=== PATIENT | male | born 1995 | race Caucasian/White ===

== ENCOUNTER 2025-04-08 20:12 | Emergency (ER) | payer BC, SELFPAY ==
[2025-04-08 20:28] VITALS: BP 150/99
[2025-04-08 20:54] LABS: Hematocrit 38.5 % (39.0-52.0); Hemoglobin 13.0 g/dL (13.0-18.0); Mean Corp Hgb Conc. 33.8 g/dL (33.0-37.0); Mean Corpuscular Volume 85.2 fL (80.0-94.0); Nucleated Red Blood Cells % 0 % (-); Platelet Count 369 10^3/uL (130-400); Red Cell Dist. Width 12.7 % (11.5-14.5)
[2025-04-08 20:55] LABS: Urine Character Clear (Clear)
[2025-04-08 21:13] LABS: ALT (SGPT) 34 U/L (0-50); AST (SGOT) 25 U/L (17-59); Albumin 4.7 g/dl (3.5-5.0); Alkaline Phosphatase 83 U/L (38-126); Blood Urea Nitrogen 12 mg/dl (9-20); Calcium 9.3 mg/dl (8.4-10.2); Carbon Dioxide 24 mmol/L (22-30); Chloride 99 mmol/L (98-107); Glucose 142 mg/dl (70-99); Potassium 3.9 mmol/L (3.5-5.1); Sodium 131 mmol/L (135-145); Total Protein 7.9 g/dl (6.3-8.2); eGFR > 60.00
[2025-04-08 21:15] LABS: Urine Red Blood Cell >100 /HPF (0-2)
[2025-04-08 21:16] LABS: Urine White Cell 0-2 /HPF (0-5)
[2025-04-08 22:28] VITALS: BMI 35.9
[2025-04-08 22:35] VITALS: BP 123/87
--- NOTE | 2025-04-08 22:48 | ED.GENMED ---
History of Present Illness
General
Chief Complaint: Flank Pain
Source: patient and family
Time Seen by Provider: 04/08/25 22:21
History of Present Illness
History of Present Illness:
Note:
CHIEF COMPLAINT(S)
Right flank pain, suggestive of kidney stone.
HISTORY OF PRESENT ILLNESS
The patient is a 29-year-old male presenting with right flank pain experienced while at rest following his workday, beginning at approximately 5:30 PM. The patient describes the pain as severe and sudden in onset, reminiscent of previous kidney
stone episodes. 'I felt kind of like something dropped in my right side,' he reported, recognizing the pain pattern from prior episodes. He was unable to drive due to the severity of the pain and called his mother for support. Although he
experienced sweating, no episodes of vomiting occurred. After arriving at the emergency department and providing a urine sample, the pain subsided, leading to the speculation that the stone may have moved into the bladder. The patient also
self-administered 500 mg of acetaminophen at about 8:00 PM.
During previous episodes, the patient experienced similar significant discomfort, which was only relieved by prescribed pain medication. He requests a refill of the medication in preparation for potential future occurrences. The patient acknowledges
a family history of kidney stones and links the current episode to past events.
ADDITIONAL HISTORY OBTAINED FROM SOURCES OTHER THAN THE PATIENT
No external sources of information regarding the present illness were discussed.
CHRONIC MEDICAL CONDITIONS SIGNIFICANTLY AFFECTING CARE
The patient has a history of kidney stones, specifically calcium oxalate stones.
SOCIAL DETERMINANTS AFFECTING HEALTH
The patient is currently grieving the recent of his father and notes potential impacts from missed medical appointments due to the emotional stress.
FAMILY HISTORY
The patients father had a history of kidney stones and recently from complications following lung cancer treatment.
PHYSICAL EXAM
General: Alert, no acute distress.
Skin: Warm, dry.
Head: Normocephalic, atraumatic.
Neck: Supple, trachea midline.
Eye Ears, nose, mouth and throat: Oral mucosa moist.
Cardiovascular: Normal peripheral perfusion, No edema.
Respiratory: Respirations are non-labored.
Gastrointestinal: Abdomen nondistended.
Back: Normal range of motion, Normal alignment.
Musculoskeletal: Normal ROM, normal strength.
Neurological: Alert and oriented to person, place, time, and situation, No focal neurological deficit observed.
Psychiatric: Cooperative, appropriate mood & affect.
PROBLEM LIST
Acute:
- Suspected kidney stone with associated right flank pain.
Chronic:
- History of calcium oxalate kidney stones.
PLAN
1. Prescribe pain medication for severe pain episodes, cautioning the patient to use it sparingly.
2. Consider prescribing tamsulosin (FlowMax) for a brief duration if symptoms persist or recur, to facilitate stone passage.
3. Advise the patient to follow up with a urologist, especially if symptoms persist or recur, for further evaluation and management strategies to prevent future kidney stones.
4. Encourage hydration and consider dietary adjustments if not already in place based on urology advice.
5. Provide an information sheet on kidney stone management, including symptoms that warrant immediate medical attention.
DIFFERENTIAL DIAGNOSIS
The Differential Diagnosis includes, in no particular order and is not limited to:
- Nephrolithiasis (Kidney stones)
- Pyelonephritis
- Hydronephrosis
- Renal cyst
- Musculoskeletal back pain
- Appendicitis
- Cholecystitis
- Pancreatitis
- Abdominal aortic aneurysm
- Gastrointestinal colic
Disposition:
SUMMARY OF ENCOUNTER
The patient, a 29-year-old male with a history of kidney stones, presented with right flank pain consistent with previous nephrolithiasis episodes. Urinalysis showed red blood cells, reinforcing a suspicion of kidney stones. His pain resolved on its
own and has been absent for over an hour. No imaging was deemed necessary due to resolution of symptoms. The patient was given a strainer to catch any passed stones and pain medication to use if symptoms return.
PLAN
1. Prescribe pain medication for potential reoccurrence of pain.
2. Provide a urine strainer for the patient to capture passed stones.
3. Recommend follow-up with urology for further evaluation and management.
INDEPENDENT REVIEW OF LABS AND INTERPRETATION OF TESTS
- My independent review of urinalysis is: presence of red blood cells, suggesting nephrolithiasis.
- My independent review of CBC indicates normal white blood cell count and hemoglobin.
- My independent review of BMP suggests normal renal function, supported by normal creatinine and chemistries.
PATIENT EDUCATION AND COUNSELING
The patient was advised on kidney stone management, including the use of a urine strainer and signs that warrant immediate medical attention.
FOLLOW-UP INSTRUCTIONS
The patient was instructed to follow up with a urologist for potential preventative strategies and further management.
MEDICATION RECONCILIATION
Prescribed pain medication to use sparingly if flank pain returns.
MEDICAL DECISION MAKING
- Number and Complexity of Problems Addressed: Chronic conditions affecting care include a history of calcium oxalate kidney stones. Differential diagnosis considered includes nephrolithiasis, pyelonephritis, hydronephrosis, renal cyst,
musculoskeletal back pain, appendicitis, cholecystitis, pancreatitis, abdominal aortic aneurysm, and gastrointestinal colic.
- Data:
- Category 1: Reviewed urinalysis, CBC, and BMP.
- Category 3: No additional consultations required as symptoms resolved, negating the need for immediate imaging or specialist input.
- Risk: Consideration of Admission/Observation: Escalation of care was considered but ultimately deemed unnecessary as the patients symptoms resolved, lab results were normal, vitals were stable, and the patient was reliable for outpatient
management and follow-up.
DIAGNOSIS
- Nephrolithiasis (Kidney stones), ICD-10: N20.0
Phy Exam
Physical Exam
Physical Exam:
.
Course
Orders/Labs/Results
Orders:
Orders
04/08/25 20:45
Complete Blood Count/With Diff Urgent
Comprehensive Metabolic Panel Urgent
Urinalysis Reflex To Culture Urgent
Date Specimen was Collected: 04/08/25
Time Specimen was Collected: 20:32
Urine Microscopic Reflex Cult Urgent
Abnormal Lab Results
04/08/25
20:45
RBC 4.52 L 10^6/uL
(4.70-6.10)
Hct 38.5 L %
(39.0-52.0)
Sodium 131 L mmol/L
(135-145)
Glucose 142 H mg/dl
(70-99)
Urine Ketones 1+ A
(Negative)
Ur Occult Blood Reflex 4+ A
(Negative)
Urine RBC >100 A /HPF
(0-2)
Urine Bacteria (Reflex) Few A
(Negative)
Urine Albumin (Reflex) 1+ A
(Neg - Trace)
04/08/25 20:45
04/08/25 20:45
Vital Signs
Initial and Last Documented VS:
Initial Vital Signs
Pulse Resp BP Pulse Ox
72 28 150/99 100
04/08/25 20:28 04/08/25 20:28 04/08/25 20:28 04/08/25 20:28
Last Documented Vital Signs
Temp Pulse Resp BP Pulse Ox
98.6 F 72 16 119/73 99
04/08/25 23:15 04/08/25 23:15 04/08/25 22:35 04/08/25 23:15 04/08/25 23:15
*Pulse Oximetry
SaO2: 98
Oxygen Mode of Delivery: Room air
Patient hypoxic: no
*Critical Care Note
Total Time (30-74mins, 75-104mins- exclusive of procedures): Not Applicable
ED Attending Note
-
Portions of this chart may have been created with voice recognition software.� Occasional wrong word or��sound alike� substitutions may have occurred due to the inherent limitations of voice recognition software.
Discharge Plan
Departure
Patient Disposition: Home (Routine Discharge)
Date of Disposition: 04/08/25
Time of Disposition: 22:48
Patient with high blood pressure during this ER visit?: No
Discharge Problem:
Renal colic
Instructions: Kidney Stones (DC), How to Strain Your Urine, Narcotic Pain Medication
Prescriptions:
New
hydrocodone-acetaminophen 5-325 mg tablet
2 tab PO Q6H PRN (Reason: Pain) Qty: 14 0RF
tamsulosin 0.4 mg capsule
0.4 mg PO HS Qty: 20 0RF
Referrals:
KIARA AUGUSTINE [Other]
Activity Restrictions/Additional Instructions:
Please see your doctor or urology in the next 1 to 2 weeks for follow-up and reevaluation. Return immediate for intractable pain, tractable vomiting, fevers or any other concerns.
Interventions
Interventions:
*Risk Screen - Suicide Last Done: 04/08/25 20:28
*General Assessment Last Done: 04/08/25 20:28
*Neglect/Abuse Screening Last Done: 04/08/25 20:28
*ED- Fall Risk Assessment Last Done: 04/08/25 20:28
*ED COVID-19 Vaccine History Last Done: 04/08/25 20:28
*ED Influenza Vaccine History Last Done: 04/08/25 20:28
*Nursing Disposition Last Done: 04/08/25 23:15
IQ-Hxshko-Cwojphhfeu Assessment Last Done: 04/08/25 22:28
ED-Male Genitourinary Assessment Last Done: 04/08/25 22:28
Discharge Date and Time
Discharge Date/Time: 04/08/25 23:15
Print Language: EMIRATI
[2025-04-08 23:15] VITALS: BP 119/73
== END 2025-04-08 23:15 | disposition home or self-care (01) ==
LOC: EMR 20:12
PROVIDERS: Emergency Medicine; EMERGENCY PHYSICIAN Emergency Medicine
DX: N23 Unspecified renal colic (principal); Z87.442 Personal history of urinary calculi; Z63.4 Disappearance and death of family member; Z91.198 Patient's noncompliance with other medical treatment and regimen for other reason; Z84.19 Family history of other disorders of kidney and ureter
CPT/HCPCS: 99282; 80053; 81003; 81015; 85025

== ENCOUNTER 2025-04-10 05:19 | Emergency (ER) | payer BC, SELFPAY ==
[2025-04-10 05:20] VITALS: BP 152/106
[2025-04-10] MEDS: TORADOL 15 MG IV (05:41)
[2025-04-10] MEDS: NSS 1000 IV (05:41)
[2025-04-10] MEDS: ZOFRAN 4 MG IV (05:41)
[2025-04-10 05:52] LABS: Hematocrit 37.5 % (39.0-52.0); Hemoglobin 12.6 g/dL (13.0-18.0); Mean Corp Hgb Conc. 33.6 g/dL (33.0-37.0); Mean Corpuscular Volume 86.4 fL (80.0-94.0); Nucleated Red Blood Cells % 0 % (-); Platelet Count 346 10^3/uL (130-400); Red Cell Dist. Width 12.5 % (11.5-14.5)
[2025-04-10 05:55] VITALS: BMI 34.4
[2025-04-10 06:06] LABS: ALT (SGPT) 31 U/L (0-50); AST (SGOT) 22 U/L (17-59); Albumin 4.4 g/dl (3.5-5.0); Alkaline Phosphatase 82 U/L (38-126); Blood Urea Nitrogen 14 mg/dl (9-20); Calcium 9.2 mg/dl (8.4-10.2); Carbon Dioxide 24 mmol/L (22-30); Chloride 101 mmol/L (98-107); Estimated Creatinine Clearance > 125 ml/min; Glucose 124 mg/dl (70-99); Lipase 113 U/L (23-300); Potassium 3.7 mmol/L (3.5-5.1); Sodium 136 mmol/L (135-145); Total Protein 7.1 g/dl (6.3-8.2); eGFR > 60.00
[2025-04-10 06:24] LABS: Urine Character Slightly Cloudy (Clear)
[2025-04-10 06:30] VITALS: BP 138/95
--- NOTE | 2025-04-10 06:50 | ED.GENMED ---
History of Present Illness
General
Chief Complaint: Flank Pain
Source: patient and records
Exam Limitations: none
Time Seen by Provider: 04/10/25 06:01
Nursing documentation reviewed up to this point in time: agreed with
History of Present Illness
History of Present Illness:
29-year-old male with history of kidney stones returns to the ER for evaluation of flank pain. Patient reports that he had symptom onset yesterday�describes intense right flank pain. He was seen in the emergency room for symptoms and had lab work
and urinalysis suggestive of a kidney stone. He did not have imaging at that time because his symptoms resolved while he was in the emergency room and he believes he may have passed the stone. He says that he felt fine when he went home but woke
up in the middle of the night around 3 AM with intense right flank pain once again. He was given pain medication in the ER yesterday which he took and his symptoms have improved a bit but have not yet resolved and so he came back to the ER. He did
have nausea and vomiting this morning associated with the intense pain. He denies any dysuria, hematuria. Denies fever or chills. Denies any radicular symptoms or weakness/numbness/incontinence or any traumatic mechanism. He does have history of
kidney stones multiple times in the past that she says the last one was a few years ago, 5 mm on the left and he was able to pass it.
Review of Systems
Review of Systems
All Other Systems: ROS reviewed and negative except as documented in HPI and ROS
Constitutional: Denies fever or chills
Respiratory: Denies trouble breathing
Cardiac: Denies chest pain
ABD/GI: Reports nausea and vomiting; Denies abdominal pain
: Reports flank pain; Denies dysuria or frequency
Musculoskeletal: Denies neck pain
Neurological: Denies headache
Phy Exam
Physical Exam
Physical Exam:
General: Awake, alert, oriented x3; nontoxic appearing
Head: Normocephalic, atraumatic
Eyes: Conjunctiva normal, sclera anicteric
Throat: Airway intact, handling secretions
Neck: Trachea midline, supple without meningismus
Lungs: Clear to auscultation bilaterally, no wheezing, rales, rhonchi
Heart: Regular rate and rhythm, no murmurs, gallops, or rubs
Abd: Soft, non distended, nontender
Back: No CVA tenderness
Neuro: Grossly intact
Skin: no rash in area of concern
Extremities: No edema in extremities, warm and well-perfused
Scores
Heart Failure Risk
Heart Failure Risk Score: Not Applicable
Heart Score for Chest Pain Patients
STEMI patient?: Not applicable
Withdrawal Assessment of Alcohol
Withdrawal Assessment Completed?: Not applicable
Course
Orders/Labs/Results
Orders:
Orders
04/10/25 05:32
Ketorolac [Toradol] 15 mg .ROUTE .STK-MED ONE
Ondansetron Injectable [Zofran] 4 mg .ROUTE .STK-MED ONE
04/10/25 05:39
Ketorolac [Toradol] 15 mg IV NOW STA
04/10/25 05:40
0.9% Sodium Chloride 1000 ml [Nss] 1,000 ml IV BOLUS
Ondansetron Injectable [Zofran] 4 mg IV NOW STA
04/10/25 05:41
Complete Blood Count/With Diff Urgent
Comprehensive Metabolic Panel Urgent
Lipase Urgent
Urinalysis Reflex To Culture Urgent
Date Specimen was Collected: 04/10/25
Time Specimen was Collected: 05:33
Urine Microscopic Reflex Cult Urgent
Urine Culture Urgent
REVA Source: U
Specimen Description:
Date Specimen was Collected: 04/10/25
Time Specimen was Collected: 05:33
04/10/25 06:04
CT Abd/pel Without Iv Or Oral Urgent
Comment:
Reason For Exam: right flank pain
04/10/25 06:50
HYDROmorphone [Dilaudid] 0.5 mg IV NOW STA
Abnormal Lab Results
04/10/25
05:41
RBC 4.34 L 10^6/uL
(4.70-6.10)
Hgb 12.6 L g/dL
(13.0-18.0)
Hct 37.5 L %
(39.0-52.0)
Absolute Monos (auto) 0.8 H 10^3/uL
(0.1-0.6)
Monocytes % 9.7 H %
(1.7-9.3)
Glucose 124 H mg/dl
(70-99)
Ur Occult Blood Reflex 2+ A
(Negative)
Urine Bacteria (Reflex) Many A
(Negative)
04/10/25 05:41
04/10/25 05:41
Vital Signs
Initial and Last Documented VS:
Initial Vital Signs
Temp Pulse Resp BP Pulse Ox
36.6 C 86 28 152/106 100
04/10/25 05:20 04/10/25 05:20 04/10/25 05:20 04/10/25 05:20 04/10/25 05:20
Last Documented Vital Signs
Temp Pulse Resp BP Pulse Ox
36.6 C 75 16 138/95 95
04/10/25 05:20 04/10/25 06:30 04/10/25 06:30 04/10/25 06:30 04/10/25 06:55
MDM/Problems Addressed
Differential Diagnosis Includes:
Nephrolithiasis, UTI; cholelithiasis, cholecystitis, appendicitis considered less likely without tenderness
MDM/Problems Addressed:
29-year-old male with history as noted returns to the ER with right flank pain�seen yesterday and treated for presumed kidney stone with Flomax and given pain control. Pain returned overnight not responsive to pain medication. He feels a bit
better now. Vitals and exam are as above. He had labs in triage including CBC and CMP which showed no clinically significant abnormalities. Urinalysis remains positive for blood but no signs of acute infection. Will send for CT abdomen pelvis.
Pain control and fluids here. Reassess after the above.
CT shows a stone 3 mm at the distal right ureter confirms the diagnosis. No other acute abnormalities noted. Patient's pain is well-controlled here. I had a long discussion with the patient about the management options�he prefers to continue
trial of passage at home. We talked about good oral hydration, he already has a prescription for Flomax which he took last night. We spoke about taking a standing pain regiment rather than only taking medication when pain becomes very severe in an
attempt to help keep pain under better control to facilitate trial of passage. We spoke about return precautions and follow-up plan with urology. All questions answered.
Acute Exacerbation and/or Progression of Chronic Illness:
Acutely hypertensive likely pain related�treated pain with improvement of blood pressure continue to monitor
Acute Exacerbation and/or Progression of Chronic Illness: HTN
*Radiology
Radiology exam reviewed: preliminary read by ED provider (Approximately 2 mm stone of the distal right ureter) and radiology read reviewed
*Pulse Oximetry
SaO2: 95
Oxygen Mode of Delivery: Room air
Patient hypoxic: no (95%)
*Critical Care Note
Total Time (30-74mins, 75-104mins- exclusive of procedures): Not Applicable
Data Reviewed
Source: patient, records and family
Patient Management
Escalation/DeEscalation of care consider admission/obs:
Considered admission�shared decision making opted for discharge to continue trial of passage
ED Attending Note
-
Portions of this chart may have been created with voice recognition software.� Occasional wrong word or��sound alike� substitutions may have occurred due to the inherent limitations of voice recognition software.
Discharge Plan
Departure
Patient Disposition: Home (Routine Discharge)
Date of Disposition: 04/10/25
Time of Disposition: 07:44
Patient with high blood pressure during this ER visit?: Yes
Discharge Problem:
Right nephrolithiasis
Instructions: Kidney Stones (DC)
Prescriptions:
No Action
hydrocodone-acetaminophen 5-325 mg tablet
2 tab PO Q6H PRN (Reason: Pain) Qty: 14 0RF
tamsulosin 0.4 mg capsule
0.4 mg PO HS Qty: 20 0RF
Referrals:
Seth Griffin MD [Active, Urology] - Call in 1-3 days for appt
Bernarda Helms MD [Family Provider, Internal Medicine]
Activity Restrictions/Additional Instructions:
He was seen in the emergency room with flank pain and found to have a 3 mm kidney stone on the right. We spoke about how to manage your kidney stone and you agreed to that you would like to continue to try to pass the stone. It is very important
you are drinking plenty of fluids to help pass the stone. You should take the Flomax daily at nighttime until the stone passes to help with passage of the stone. You should take the following medications to help manage your pain:
Kzptxw-qjj-sxujr medications until stone passes:
Tylenol 500 mg every 6 hours (next dose due at 12PM)
Ibuprofen 400 mg every 6 hours (next dose due at 12PM)
Hydrocodone�acetaminophen 1 tab every 8 hours (take next dose at 12PM)
You can take one additional tab of the hydrocodone/acetaminophen as needed for pain that is breaking through this regiment as we discussed
If you are not able to manage your symptoms with the above plan or if your symptoms are worsening or if you develop any new symptoms especially fever you should return to the ER for reassessment as we discussed.
Thank you for visiting the Emergency Department at [facility].
1. Please schedule a follow up appointment as directed. Call first thing tomorrow morning to make an appointment.
2. If indicated, please take your medications as instructed and indicated on discharge paperwork.
3. If any of your symptoms do not improve, or persist, or become more severe within 6-12 hours, please return to the emergency department for further care.
4. Please return to the emergency department if you develop a headache, neck pain/stiffness, fever greater than 100.4F, chest pain, shortness of breath, persistent nausea, vomiting, slurred speech, difficulty walking, numbness/tingling, weakness,
signs of infection or any other symptoms that are worrisome to you.
Please call [phone] if you have any questions.
Interventions
Interventions:
*Risk Screen - Suicide Last Done: 04/10/25 05:20
*General Assessment Last Done: 04/10/25 05:54
*Neglect/Abuse Screening Last Done: 04/10/25 05:20
*ED- Fall Risk Assessment Last Done: 04/10/25 05:54
*ED COVID-19 Vaccine History Last Done: 04/10/25 05:54
*ED Influenza Vaccine History Last Done: 04/10/25 05:54
BG-Pqumnc-Tinnkjwykx Assessment Last Done: 04/10/25 05:53
ED-Male Genitourinary Assessment Last Done: 04/10/25 05:53
Discharge Date and Time
Print Language: LITHUANIAN
[2025-04-10] MEDS: DILAUDID 0.5 MG IV (06:52)
[2025-04-10 07:00] VITALS: BP 116/87
[2025-04-10 07:05] LABS: Urine Squamous Cell SEEN /LPF (Few)
== END 2025-04-10 08:02 | disposition home or self-care (01) ==
LOC: EMR 05:19
PROVIDERS: Student in an Organized Health Care Education/Training Program; EMERGENCY PHYSICIAN Emergency Medicine; FAMILY PHYSICIAN Internal Medicine
DX: N13.2 Hydronephrosis with renal and ureteral calculous obstruction (principal); I10 Essential (primary) hypertension; Z87.442 Personal history of urinary calculi
CPT/HCPCS: 99284; 96374; 96375 ×2; 96361; 74176; 80053; 81003; 81015; 83690; 85025; 87086